=== PATIENT | female | born 1970 | race Caucasian/White ===

== ENCOUNTER → 2019-04-04 | Outpatient (CLI) | payer BC ==
[~2019-04-04] MED LIST: ACET-789 PO; ACHYD1T PO; BIRTH CONTROL PO; CLOT45CR46 TOP; DCS100C PO; DOCU-143 PO; ESCI20TA2 PO; ESTR1TAB24 PO; FERR-57 PO; FLC150T PO; FRS325T PO; HYDR-4226 PO; HYDR-4227 PO; HYDR1TAB PO; IBUP-1773 PO; Ibuprofen PO; OXYC-12 PO; PREN1TAB19 PO; PREN1TAB39 PO; SIME80TA16 PO; ZLP10T PO; ZOLP10TA PO
[2019-04-04 00:38] LABS: HEMATOCRIT 47 % (35-52); HEMOGLOBIN 15.3 G/DL (11.5-16.0); MEAN CORPUSCULAR HEMOGLOBIN 31 PG (25-34); MEAN CORPUSCULAR HGB CONC 32 G/DL (32-36); MEAN CORPUSCULAR VOLUME 95 FL (80-99); MEAN PLATELET VOLUME 10.4 FL (7.4-10.4); NEUTROPHILS % (AUTO) 41 % (42-75); PLATELET COUNT 386 10^3/uL (130-400); RED CELL DISTRIBUTION WIDTH 15.1 % (10.0-14.5); WHITE BLOOD COUNT 13.7 10^3/uL (4.3-11.0)
[2019-04-04 00:39] LABS: BASOPHILS % (AUTO) 0 % (0-10); EOSINOPHILS # (AUTO) 0.2 10^3/uL (0.0-0.3); EOSINOPHILS % (AUTO) 2 % (0-10); LYMPHOCYTES % (AUTO) 44 % (12-44); MONOCYTES # (AUTO) 1.8 X 10^3 (0.0-1.0); MONOCYTES % (AUTO) 13 % (0-12); NEUTROPHILS # (AUTO) 5.7 X 10^3 (1.8-7.8)
[2019-04-04 00:44] LABS: BAND NEUTROPHILS 1 %; NEUTROPHILS % (MANUAL) 39 %
[2019-04-04 00:45] LABS: LYMPHOCYTES % (MANUAL) 54 %; MONOCYTES % (MANUAL) 6 %; RBC MORPH NORMAL
== END ==
LOC: LABNPT 00:30
PROVIDERS: ATTEND Nurse Practitioner Family
DX: Z01.89 Encounter for other specified special examinations (principal)
CPT/HCPCS: 85007; 85027; 85045

== ENCOUNTER → 2020-07-15 | Outpatient (CLI) | payer BC ==
--- NOTE | 2020-07-15 10:53 | Diagnostic Imaging Report ---
PROCEDURE: MRI lumbar spine. TECHNIQUE: Multiplanar, multisequence MRI of the lumbar spine was performed without contrast. INDICATION: Chronic lower back pain. COMPARISON: None. FINDINGS: For the purposes of this exam, last well-formed disc space is denoted the L5-S1 level. Static alignment is maintained. There is no significant hetal or retrolisthesis. There is no evidence of jumped facets. Vertebral body heights are maintained. There is no acute fracture. Evaluation of the marrow signal demonstrates Modic type II change involving the adjacent endplates at the L5-S1 level, right greater than left. Marrow signal is otherwise unremarkable. There is also localized intervertebral disc height loss at L5-S1. Remaining intervertebral disc heights are fairly well preserved. Included portions of the distal cord are unremarkable. Conus terminates at approximately the L1 level. No abnormal intrathecal filling defects are seen. Pre and paravertebral soft tissue structures are unremarkable. Axial images demonstrate the following: T12-L1 through L3-L4: There is no large disc bulge or focal protrusion. There is no significant spinal canal or neuroforaminal stenosis. L4-L5: There is no large disc bulge or focal protrusion. There is bilateral ligamentum flavum laxity and facet arthropathy, but no significant spinal canal or neuroforaminal stenosis. L5-S1: There is small central posterior disc protrusion superimposed on slight broad-based posterior disc bulge and bilateral facet arthropathy. As a result, there is mild narrowing of the bilateral neuroforamen. Spinal canal is unremarkable. IMPRESSION: 1. Degenerative changes of the lumbar spine, greatest at L5-S1 as above. 2. No acute fracture or dislocation. Dictated by: Dictated on workstation # [id number]
== END ==
LOC: RAD 08:32
PROVIDERS: ATTEND Physician Assistant
DX: M47.817 Spondylosis without myelopathy or radiculopathy, lumbosacral region (principal); M51.27 Other intervertebral disc displacement, lumbosacral region; M48.07 Spinal stenosis, lumbosacral region; M51.26 Other intervertebral disc displacement, lumbar region; G89.29 Other chronic pain
CPT/HCPCS: 72148